=== PATIENT | male | born 1990 ===

== ENCOUNTER 2018-08-29 12:27 | Emergency (ER) | payer MEDICAID, OTHER ==
[2018-08-29 13:10] VITALS: BMI 31.3
[2018-08-29 13:11] VITALS: RESP 18; TEMP 98.5; O2SAT 98
--- NOTE | 2018-08-29 13:51 | ED PDOC ---
Arrival/HPI - General Chief Complaint: Abdominal Pain Historian: Patient - History of Present Illness Narrative History of Present Illness (Text): 08/29/18 13:48 A 28 year old male, with no significant past medical history, patient is [place]ian-speaking had someone at bedside to translate, presents to the emergency department complaining of periumbilical abdominal pain for 1 month that has been worsening in the past few hours. Patient states he has not seen any other physicians for this issue. Denies taking any medications to ease pain. He notes he was able to eat food this morning. Patient denies any nausea, vomiting, changes in bowel movement, fever, chest pain, shortness of breath, appetite changes, or any other complaints at this time. Time/Duration: Other (has had pain for 1 month, worsening in the past few hours) Symptom Course: Worsening Past Medical History - Provider Review Nursing Documentation Reviewed: Yes - Infectious Disease Hx of Infectious Diseases: None - Cardiac Hx Cardiac Disorders: No - Psychiatric Hx Substance Use: No Family/Social History - Physician Review Nursing Documentation Reviewed: Yes Family/Social History: No Known Family HX Smoking Status: Never Smoked Hx Alcohol Use: No Hx Substance Use: No Allergies/Home Meds Allergies/Adverse Reactions: Allergies No Known Allergies Allergy (Verified 08/29/18 13:41) Review of Systems - Physician Review All systems were reviewed & negative as marked: Yes - Review of Systems Constitutional: absent: Fevers Respiratory: absent: SOB Cardiovascular: absent: Chest Pain Gastrointestinal: Abdominal Pain (periumbilical region). absent: Stool Changes, Nausea, Vomiting, Appetite Changes Genitourinary Male: absent: Urinary Output Changes Physical Exam Vital Signs Reviewed: Yes Vital Signs Temp Pulse Resp BP Pulse Ox 08/29/18 13:10 98.5 F 87 18 145/82 98 Temperature: Afebrile Blood Pressure: Normal Pulse: Regular Respiratory Rate: Normal Appearance: Positive for: Well-Appearing, Non-Toxic, Comfortable Pain Distress: None Mental Status: Positive for: Alert and Oriented X 3 - Systems Exam Head: Present: Atraumatic, Normocephalic Pupils: Present: PERRL Extroacular Muscles: Present: EOMI Conjunctiva: Present: Normal Mouth: Present: Moist Mucous Membranes Neck: Present: Normal Range of Motion Respiratory/Chest: Present: Clear to Auscultation, Good Air Exchange. No: Res piratory Distress, Accessory Muscle Use Cardiovascular: Present: Regular Rate and Rhythm, Normal S1, S2. No: Murmurs Abdomen: Present: Tenderness (RLQ and periumbilical region.). No: Distention, Peritoneal Signs, Guarding, Other (no rigidity) Back: Present: Normal Inspection Upper Extremity: Present: Normal Inspection. No: Cyanosis, Edema Lower Extremity: Present: Normal Inspection. No: Edema Neurological: Present: GCS=15, CN II-XII Intact, Speech Normal Skin: Present: Warm, Dry, Normal Color. No: Rashes Psychiatric: Present: Alert, Oriented x 3, Normal Insight, Normal Concentration Medical Decision Making ED Course and Treatment: 08/29/18 13:50 Impression: 28 year old male with periumbilical pain. Physical exam shows tenderness to RLQ and periumbilical region. Plan: -- Abd/Pelvis CT -- Labs --Toradol --Maalox --Pepcid -- Reassess and disposition Progress Notes: 08/29/18 16:00 Labs reviewed with no leukocytosis noted. Patient comfortably laying in bed at this time. CT a/p results pending. 08/29/18 16:30 CT a/p reveals colitis and bilateral punctate non-obstructing kidney stones. Patient made aware of findings and advised to follow up with his PCP. He ackn owledges the need for outpatient follow up with GI. Scripts provided and opportunity for questions given and answered. He is stable for discharge. - Lab Interpretations Lab Results: 08/29/18 14:10 08/29/18 14:10 Lab Results 08/29/18 14:10: Sodium 145, Potassium 3.7, Chloride 107, Carbon Dioxide 27, Anion Gap 14, BUN 21, Creatinine 0.9, Est GFR ( Amer) > 60, Est GFR (Non- Af Amer) > 60, Random Glucose 96, Calcium 9.3, Magnesium 2.1, Total Bilirubin 0.4, AST 39, ALT 61 H, Alkaline Phosphatase 73, Total Protein 7.1, Albumin 4.3, Globulin 2.8, Albumin/Globulin Ratio 1.5, Lipase 94 08/29/18 14:10: PT 12.0, INR 1.08, APTT 31.3 08/29/18 14:10: WBC 7.1, RBC 4.82, Hgb 14.3, Hct 42.0, MCV 87.1, MCH 29.7, MCHC 34.0, RDW 12.6, Plt Count 207, MPV 10.1, Neut % (Auto) 55.4, Lymph % (Auto) 36.2 H, Grady % (Auto) 4.5, Eos % (Auto) 3.5, Baso % (Auto) 0.4, Lymph # (Auto) 2.6, Grady # (Auto) 0.3, Eos # (Auto) 0.3, Baso # (Auto) 0.03, Absolute Neuts (auto) 3.91 I have reviewed the lab results: Yes - RAD Interpretation Radiology Orders: 08/29/18 13:44 ABD & PELVIS IV CONTRAST ONLY [CT] Stat - Scribe Statement The provider has reviewed the documentation as recorded by the Rexibe Santi Wu Provider Scribe Attestation: All medical record entries made by the Scribe were at my direction and personally dictated by me. I have reviewed the chart and agree that the record accurately reflects my personal performance of the history, physical exam, medical decision making, and the department course for this patient. I have also personally directed, reviewed, and agree with the discharge instructions and disposition. Disposition/Present on Arrival - Present on Arrival Any Indicators Present on Arrival: No History of DVT/PE: No History of Uncontrolled Diabetes: No Urinary Catheter: No History of Decub. Ulcer: No History Surgical Site Infection Following: None - Disposition Have Diagnosis and Disposition been Completed?: Yes Diagnosis: Colitis, Kidney stones Disposition: HOME/ ROUTINE Disposition Time: 16:32 Patient Plan: Discharge Condition: STABLE Discharge Instructions (ExitCare): Kidney Stones (DC), Colitis (DC) Print Language: CYPRIOT Additional Instructions: All medical record entries made by the Scribe were at my direction and personally dictated by me. I have reviewed the chart and agree that the record accurately reflects my personal performance of the history, physical exam, medical decision making, and the department course for this patient. I have also personally directed, reviewed, and agree with the discharge instructions and disposition. Please follow up with your PCP Please avoid drinking If you wish, please follow up with the healthcare marketer listed in the dis charge papers Prescriptions: Aluminum Hydroxide/Magnesium [Maalox Plus 30 ml] 30 ml PO Q6H #2 udc Famotidine [Pepcid] 40 mg PO DAILY #10 tablet Referrals: Sylvia Nazario MD [Medical Doctor] - Follow up with primary Selma De La Torre DO [Doctor Osteopathy] - Follow up with primary Forms: [employer] ([place]ian), WORK NOTE
[2018-08-29] MEDS ORDERED: Sodium Chloride 0.9% 1,000 ML IV STA (14:07)
[2018-08-29 14:20] LABS: BASO # 0.03 K/mm3 (0.0-2.0); BASO % 0.4 % (0.0-3.0); EOS # 0.3 (0.0-0.7); EOS % 3.5 % (1.5-5.0); HEMOGLOBIN 14.3 g/dL (14.0-18.0); LYMPH # 2.6 (1.2-3.4); LYMPH % 36.2 % (22.0-35.0); MEAN CELL VOLUME 87.1 fl (80.0-105.0); MEAN CORPUSCULAR HEMOGLOBIN 29.7 pg (25.0-35.0); MEAN PLATELET VOLUME 10.1 fl (7.0-11.0); MONO # 0.3 (0.1-0.6); MONO % 4.5 % (1.0-6.0); RBC 4.82 10^6/uL (3.5-6.1); RED CELL DISTRIBUTION WIDTH 12.6 % (11.5-14.5); WHITE BLOOD COUNT 7.1 10^3/uL (4.5-11.0)
[2018-08-29 14:28] LABS: INR 1.08; PARTIAL THROMBOPLASTIN TIME 31.3 Seconds (26.9-38.3)
[2018-08-29 14:29] LABS: ALB/GLOB RATIO 1.5 (1.1-1.8); ALBUMIN 4.3 g/dL (3.0-4.8); ALT/SGPT 61 U/L (7-56); AST/SGOT 39 U/L (17-59); BLOOD UREA NITROGEN 21 mg/dL (7-21); CALCIUM 9.3 mg/dL (8.4-10.5); GFR NON-AFRICAN AMERICAN > 60; LIPASE 94 U/L (23-300)
[2018-08-29] MEDS ORDERED: Alum-Mag Hydrox-Simethicone Susp (30 mL) PO STA (14:30)
[2018-08-29] MEDS ORDERED: Atrop/Hyosc/Scopal/PB Elixir (120 ml) PO STA (14:30)
--- NOTE | 2018-08-29 16:16 | CT ---
Date of service: 08/29/2018 PROCEDURE: CT Abdomen and Pelvis with contrast HISTORY: abdominal pain COMPARISON: None available. TECHNIQUE: Contrast dose: 150 mL Omnipaque 350 IV Radiation dose: Total exam DLP = 760.3 mGy-cm. This CT exam was performed using one or more of the following dose reduction techniques: Automated exposure control, adjustment of the mA and/or kV according to patient size, and/or use of iterative reconstruction technique. FINDINGS: LOWER THORAX: No visible consolidation, pleural effusion, or pneumothorax. LIVER: Hypoattenuation of the liver compatible with hepatic steatosis. GALLBLADDER AND BILE DUCTS: Unremarkable. PANCREAS: Unremarkable. SPLEEN: Unremarkable. ADRENALS: Unremarkable. KIDNEYS AND URETERS: The kidneys enhance symmetrically. No hydronephrosis or obstructing calculus identified. Punctate nonobstructing bilateral renal calculi. VASCULATURE: No aortic aneurysm. No atherosclerotic calcification or mural plaque present. BOWEL: Stomach is nondistended. Lack of oral contrast limits evaluation for bowel pathology. Bowel loops appear within normal limits of caliber without evidence of obstruction. Circumferential thickening of the rectosigmoid colon can be seen in setting of chronic diverticulosis. Clinical correlation is recommended to exclude diverticulitis or colitis (I.e. infectious, inflammatory, ischemic). APPENDIX: The appendix appears within normal limits of caliber. No secondary signs of acute appendicitis. PERITONEUM: No significant free fluid. No definite free air. LYMPH NODES: No bulky adenopathy identified. BLADDER: Unremarkable. REPRODUCTIVE: Prostate gland measures approximately 3.4 x 3.7 cm. BONES: No acute osseous abnormality is detected. OTHER FINDINGS: None. IMPRESSION: Circumferential thickening of the rectosigmoid colon can be seen in setting of chronic diverticulosis. Clinical correlation is recommended to exclude diverticulitis or colitis (I.e. infectious, inflammatory, ischemic). Hypoattenuation of the liver compatible with hepatic steatosis. Punctate nonobstructing bilateral renal calculi.
[2018-08-29 16:47] VITALS: BP 122/88; PULSE 80
--- NOTE | 2018-08-30 11:42 | CARD ---
APPROVED REPORT Date of service: 08/29/2018 EKG Measurement Heart [id number] <Conclusion> Normal sinus rhythm Left axis deviation Abnormal ECG
== END 2018-08-29 17:13 | disposition home or self-care (01) ==
LOC: ED 12:27
DX: K52.9 Noninfective gastroenteritis and colitis, unspecified (principal); N20.0 Calculus of kidney
CPT/HCPCS: 74177; 80053; 83690; 83735; 85025; 85610; 85730; 93005; 96374; 96375; 99283; J1885; J7030; Q9967